=== PATIENT | female | born 1990 | race Caucasian/White ===

== ENCOUNTER 2018-04-18 07:55 | Emergency (ER) | payer OTHER ==
[~2018-04-18] VITALS: Ht 152.4 cm; Wt 53.1 kg
[2018-04-18 07:59] VITALS: Ht 152.4 cm; Wt 53.1 kg
[2018-04-18 08:39] VITALS: BP 122/76
== END 2018-04-18 08:39 | disposition home or self-care (01) ==
LOC: ED 07:55
DX: S70.11XA Contusion of right thigh, initial encounter (principal); S09.90XA Unspecified injury of head, initial encounter; Z88.0 Allergy status to penicillin; V49.88XA Car occupant (driver) (passenger) injured in other specified transport accidents, initial encounter; Y93.89 Activity, other specified; Y92.89 Other specified places as the place of occurrence of the external cause; Y99.8 Other external cause status